=== PATIENT | male | born 1995 | race American Indian/Alaskan Native ===

== ENCOUNTER 2019-03-02 13:30 | Emergency (ER) | payer BC, OTHER ==
[2019-03-02 13:59] VITALS: BP 128/76; PULSE 90; RESP 18; TEMP 98.4; O2SAT 98
--- NOTE | 2019-03-02 15:04 | C.PDOC ---
Time Seen by Provider: 03/02/19 14:15 Chief Complaint (Nursing): Allergic Reaction History Per: Patient Onset/Duration Of Symptoms: Days (2) Current Symptoms Are (Timing): Still Present Possible Cause: Medication (Sumatriptan) Associated Symptoms: Skin Rash, Itching, Redness Home/EMS Treatment: None Severity: Moderate Additional History Per: Prior Records Past Medical History Reviewed: Historical Data, Nursing Documentation, Vital Signs Vital Signs: Last Vital Signs Temp 98.4 F 03/02/19 13:55 Pulse 90 03/02/19 13:55 Resp 18 03/02/19 13:55 BP 128/76 03/02/19 13:55 Pulse Ox 98 03/02/19 13:55 - Medical History PMH: Anxiety, Asthma, Migraine Family History: States: Unknown Family Hx - Social History Hx Tobacco Use: Yes (2-3 cigarettes) Hx Alcohol Use: Yes Hx Substance Use: No - Immunization History Hx Tetanus Toxoid Vaccination: No Hx Influenza Vaccination: No Hx Pneumococcal Vaccination: No Review Of Systems Except As Marked, All Systems Reviewed And Found Negative. Constitutional: Negative for: Weakness Eyes: Negative for: Conjunctivae Inflammation ENT: Negative for: Throat Swelling Cardiovascular: Negative for: Chest Pain Respiratory: Negative for: Cough, Shortness of Breath, Wheezing Gastrointestinal: Negative for: Vomiting, Abdominal Pain Musculoskeletal: Negative for: Neck Pain Skin: Positive for: Rash Neurological: Negative for: Weakness Physical Exam - Physical Exam Appears: Non-toxic, No Acute Distress Skin: Warm, Dry, Rash (Generalized erythematous rash) Head: Atraumatic, Normacephalic Eye(s): bilateral: Normal Inspection, PERRL, EOMI Oral Mucosa: Moist Tongue: Normal Appearing Lips: Normal Appearing Throat: No Exudate, No Drooling, No Mass Neck: Normal ROM, Supple Lymphatic: No Adenopathy Cardiovascular: Rhythm Regular Respiratory: Normal Breath Sounds, No Accessory Muscle Use, No Wheezing Extremity: Normal ROM, No Pedal Edema Neurological/Psych: Oriented x3, Normal Speech ED Course And Treatment O2 Sat by Pulse Oximetry: 98 Pulse Ox Interpretation: Normal Disposition Counseled Patient/Family Regarding: Studies Performed, Diagnosis, Need For Followup, Rx Given - Disposition Referrals: Margarito Pitt MD [Staff Provider] - Disposition: HOME/ ROUTINE Disposition Time: 15:05 Condition: IMPROVED Additional Instructions: Stop taking the Sumatriptan. Follow up with your doctor within 1-2 days. Return to the ER if you develop trouble breathing or swallowing, throat swelling, mouth sores, worsening of symptoms or if you have any other concerns. Prescriptions: DiphenhydrAMINE [Benadryl] 25 mg PO Q4 PRN #30 cap PRN Reason: Allergy Symptoms Famotidine [Pepcid] 20 mg PO BID #30 tab Methylprednisolone [Medrol] 1 dose PO DAILY #1 packet Instructions: Skin Rash (DC) - Clinical Impression Clinical Impression: Generalized rash
== END 2019-03-02 15:13 | disposition home or self-care (01) ==
LOC: C.ER 13:30
DX: R21 Rash and other nonspecific skin eruption (principal)
CPT/HCPCS: 87070; 87430; 96372; 99283; J2930